=== PATIENT | male | born 1960 | race Caucasian/White ===

== ENCOUNTER 2016-05-11 12:27 | Emergency (ER) | payer OTHER ==
[~2016-05-11] VITALS: Ht 182.9 cm; Wt 98.9 kg
--- NOTE | 2016-05-11 14:17 | ED GENERAL ADULT ---
History of Present Illness General Chief Complaint: General Adult Stated Complaint: MED REFILL Source: patient Exam Limitations: no limitations Vital Signs & Intake/Output Vital Signs & Intake/Output Vital Signs Date Time Temp Pulse Resp B/P Pulse O2 O2 Flow FiO2 Ox Delivery Rate 05/11 1437 98.3 82 18 121/80 97 Room Air 05/11 1234 98.2 88 18 119/82 99 Room Air Allergies Coded Allergies: No Known Allergies () Reconcile Medications Oxycodone HCl (Roxicodone) 5 MG TABLET 3 TAB PO Q6 PRN PAIN Triage Note: 56 Y/O MALE REQUESTING ROXICODONE - STATES HE CANNOT GET SCRIPT FROM DR JONES, "THE [facility] IS THERE NOW SO THEY SENT ME HERE" Triage Nurses Notes Reviewed? yes HPI: This patient is a 56 year old male with a past medical history including chronic pain who presented to the emergency department today requesting a medication refill. He reported, "My doctor did me wrong. He cut me off from my pain medication today. I have been without my medication for about 42 hours." He reported that he had one episode of vomiting here in the emergency department, he is feeling nausea with worsening pain in his legs and back. His friend is at the bedside and reported, "He has been getting this medication from this doctor for about 18 years. We are going to try to get him into pain management, but he needs his medication now in order to work." The patient denied any fevers, chills, chest pain, or SOB. (TAI MESA PA-C) Past History Travel History Traveled to [place] past 21 day No Medical History Any Pertinent Medical History? 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 No (TAI MESA PA-C) Review of Systems Review of Systems Constitutional: Reports: no symptoms. EENTM: Reports: no symptoms. Respiratory: Reports: no symptoms. Cardiovascular: Reports: no symptoms. GI: Reports: see HPI. Musculoskeletal: Reports: see HPI. Skin: Reports: no symptoms. Neurological/Psychological: Reports: no symptoms. All Other Systems: Reviewed and Negative (TAI MESA PA-C) Physical Exam Physical Exam General Appearance: well developed/nourished, no apparent distress, alert, awake Comments: Well-developed well-nourished person in no acute distress HEENT: Normal EENT exam, head normocephalic, moist mucous membranes Pupils equally round and reactive to light. Back: normal gait Respiratory: No respiratory distress. Speaking in full sentences Extremity: Normal equal pulses Neuro: Alert oriented x3, motor sensory normal, cranial nerves II through XII grossly intact. Skin: No appreciable rash on exposed skin, skin is warm and dry. Psych: Mood and affect is normal, memory and judgment is normal. Core Measures ACS in differential dx? No CVA/TIA Diagnosis: No Severe Sepsis Present: No Septic Shock Present: No (TAI MESA PA-C) Progress Differential Diagnoses I considered the following diagnoses in my evaluation of the patient: [ medication seeking, medication refill, medication withdrawal, influenza, viral syndrome] Plan of Care: Current Medications Sig/Edilberto Start time Last Medication Dose Stop Time Status Admin Oxycodone HCl 30 MG ONCE ONE 05/11 141 UNVr (Roxicodone) 05/11 1416 Initial ED EKG: none Comments: 05/11/2016 2:16:18 PM: I will touch base with this patient's primary care physician to verify his medication dosage. 05/11/2016 2:31:08 PM: I spoke to Dr. ROLLINS. He reported that he is no longer going to be prescribing opiate-based medications for this patient. He reported that he called in to prescriptions for this patient in case he develop any withdrawal symptoms. He reported that he is working on getting this patient set up in a pain management center. He also reported that if I would like to get a few tablets of Roxicodone every 6 hours when necessary, this could be okay. (TAI MESA PA-C) Departure Departure Disposition: HOME OR SELF CARE Condition: Stable Clinical Impression Primary Impression: Medication refill Referrals: KETAN BUSTAMANTE,LISA Pal (PCP/Family) Additional Instructions: Take medication as prescribed. return for any worsening symptoms or concerns. Departure Forms: Customer Survey General Discharge Information Prescriptions: Current Visit Scripts Oxycodone HCl (Roxicodone) 3 TAB PO Q6 PRN PAIN #10 (MOSHE FISH,TAI) PA/SCRAP DEALER Co-Sign Statement Statement: ED Attending supervision documentation- [] I saw and evaluated the patient. I have also reviewed all the pertinent lab results and diagnostic results. I agree with the findings and the plan of care as documented in the PA's/SCRAP DEALER's documentation. [X] I have reviewed the ED Record and agree with the PA's/SCRAP DEALER's documentation. [] Additions or exceptions (if any) to the PAs/SCRAP DEALER's note and plan are summarized below: [] (SHELTON YUAN DO) Critical Care Note Critical Care Note Critical Care Time: non-applicable (MOSHE FISH,TAI)
[2016-05-11] MEDS ORDERED: ROXICODONE5 M1 PO (14:29)
[2016-05-11 14:37] VITALS: BP 121/80
== END 2016-05-11 14:38 ==
LOC: ERH 12:27
DX: Z76.0 Encounter for issue of repeat prescription (principal)
CPT/HCPCS: 99281